=== PATIENT | male | born 1985 | race Caucasian/White ===

== ENCOUNTER 2018-02-12 10:33 | Day surgery (SDC) | payer OTHER ==
[~2018-02-12 10:33] MED LIST: Lactated Ringers 1,000 ML IV SCH; Sodium Chloride 0.9% 10 ML Syringe FLUSH PRN; Sodium Chloride 0.9% 2.5 ML Syringe FLUSH PRN
[2018-02-12] MEDS ORDERED: fentaNYL 100 MCG/2 ML SDV ONE (11:01)
[2018-02-12] MEDS ORDERED: Lidocaine 2% 5 ML SDV ONE (11:01)
[2018-02-12] MEDS ORDERED: Propofol 200 MG/20 ML SDV ONE ×2 (11:01→13:47)
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
--- NOTE | 2018-02-12 14:04 | PCM.OPNOTE ---
- General Post-Op/Procedure Note Date of Surgery/Procedure: 02/12/18 Operative Procedure(s): EGD with biopsy Findings: Normal appearing EGD Pre Op Diagnosis: Reflux, history of H pylori infection Post-Op Diagnosis: same Anesthesia Technique: MARGARITO Primary Surgeon: Angie Castillo Condition: Good
--- NOTE | 2018-02-12 14:05 | PCM.POSTAN ---
POST ANESTHESIA ASSESSMENT - MENTAL STATUS Mental Status: Alert, Oriented - VITAL SIGNS Pulse Rate: 94 SaO2: 94 Resp Rate: 20 Blood Pressure: 97/59 - RESPIRATORY Respiratory Status: Respiratory Rate WNL, Airway Patent, O2 Saturation Stable - CARDIOVASCULAR CV Status: Pulse Rate WNL, Blood Pressure Stable - GASTROINTESTINAL GI Status: No Symptoms - PAIN Pain Score: 0 - POST OP HYDRATION Hydration Status: Adequate & Stable - OBSERVATIONS Free Text/Narrative:: awake and conversant in pacu.
--- NOTE | 2018-02-12 14:26 | PCM48HPAN ---
Post Anesthesia Note - EVALUATION WITHIN 48HRS OF ANESTHETIC Vital Signs in Normal Range: Yes Patient Participated in Evaluation: Yes Respiratory Function Stable: Yes Airway Patent: Yes Cardiovascular Function Stable: Yes Hydration Status Stable: Yes Pain Control Satisfactory: Yes Nausea and Vomiting Control Satisfactory: Yes Mental Status Recovered: Yes Pulse Rate: 94 SaO2: 99 Resp Rate: 16 Blood Pressure: 114/63 - COMMENTS/OBSERVATIONS Free Text/Narrative:: awake, alert, vitals stable. eating and drinking. I discussed [email or web address] and musician Angel Barba with patient and his brother. Doing very well.
--- NOTE | 2018-02-12 19:56 | OR ---
SURGEON: LOYDA MARION MD DATE OF PROCEDURE: 02/12/2018 PREOPERATIVE DIAGNOSES: Reflux, history of Helicobacter pylori infection. POSTOPERATIVE DIAGNOSES: Reflux, history of Helicobacter pylori infection. PROCEDURE PERFORMED: Diagnostic EGD with biopsies. ANESTHESIA: MAC. INSTRUMENT USED: Olympus endoscope. EXTENT OF EXAM: To the second portion of duodenum. PREPARATION: Good. LIMITATIONS: None. INDICATION FOR EXAMINATION: The patient is the patient is a 32-year-old male who presents with ongoing reflux symptoms after an H. pylori infection several months ago. He was successfully treated, but continues to have burping and reflux symptoms. These are made better with Carafate and Protonix. The decision was made to proceed with a diagnostic EGD. I explained the procedure, expected perioperative course, and risks including bleeding, infection, or damage to surrounding structures including perforation. The patient verbalized understanding and wishes to proceed. PROCEDURE IN DETAIL: The patient was brought to the endoscopy suite and placed in a beach chair position. A time-out was completed verifying the patient's name, age, date of , allergies, and procedure to be performed. Monitored anesthesia care was induced and continuous oxygen was provided via nasal cannula throughout the procedure. A bite block was placed in the patient's mouth. A well lubricated endoscope was placed in the patient's mouth and advanced under direct visualization to the second portion of duodenum. This appeared normal and a photograph was taken. The scope was then fully withdrawn while examining the color, texture, anatomy, and integrity mucosa of the upper GI tract. The duodenum appeared normal. The scope was brought into the stomach. A photograph was taken the GE junction as well as the pylorus. Both appeared normal. The gastric mucosa was free of inflammation or ulceration. Biopsies were taken the gastric antrum, body, and fundus and sent for histologic review and H. pylori testing. The scope was then brought into the distal esophagus. The GE junction appeared normal and a photograph was taken. The remainder of the esophageal mucosa was free of pathology. The scope was removed and the procedure terminated. The patient tolerated the procedure well was taken to PACU in stable condition. Postoperative diagnosis, reflux. RECOMMENDATIONS: Follow up in clinic in 2 weeks to review the Pathology results from his biopsies and determine the next steps in treatment. BEN / SURAJ /[id number]
== END 2018-02-12 14:22 | disposition home or self-care (01) ==
LOC: MW.SDS 10:33
PROVIDERS: ATTEND Surgery
DX: K29.50 Unspecified chronic gastritis without bleeding (principal); B96.81 Helicobacter pylori [H. pylori] as the cause of diseases classified elsewhere; K21.9 Gastro-esophageal reflux disease without esophagitis; E66.01 Morbid (severe) obesity due to excess calories; Z68.41 Body mass index [BMI] 40.0-44.9, adult; Z79.899 Other long term (current) drug therapy
CPT/HCPCS: 43239; J2704; J7120; J3010

== ENCOUNTER 2020-07-10 17:18 | Emergency (ER) | payer BC, OTHER ==
[2020-07-10] MEDS ORDERED: Diphtheria,Pertussis(Acell),Tetanus Vaccine 0.5 ML Syringe IM ONE (17:26)
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
== END 2020-07-10 19:22 | disposition home or self-care (01) ==
LOC: MW.ED 17:18
DX: S01.83XA Puncture wound without foreign body of other part of head, initial encounter (principal); S01.81XA Laceration without foreign body of other part of head, initial encounter; E66.9 Obesity, unspecified; Z68.30 Body mass index [BMI] 30.0-30.9, adult; Z23 Encounter for immunization; W22.8XXA Striking against or struck by other objects, initial encounter
CPT/HCPCS: 12011; 70450; 70450-26; 90471; 90715; 99283; 99283-25

== ENCOUNTER 2022-06-17 10:14 | Emergency (ER) | payer BC | END 2022-06-18 11:59 | disposition home or self-care (01) | LOC: MW.ED 10:14 | DX: S50.11XA Contusion of right forearm, initial encounter (principal); E66.9 Obesity, unspecified; Z68.41 Body mass index [BMI] 40.0-44.9, adult; Z79.899 Other long term (current) drug therapy; W51.XXXA Accidental striking against or bumped into by another person, initial encounter | CPT/HCPCS: 73090-26-RT; 73090-RT; 99283 ==